=== PATIENT | male | born 1955 | race Caucasian/White ===

== ENCOUNTER 2016-11-30 10:47 | Outpatient (CLI) | payer OTHER | END 2016-11-30 10:48 | disposition home or self-care (01) | DX: I10 Essential (primary) hypertension (principal); Z00.00 Encounter for general adult medical examination without abnormal findings; Z12.5 Encounter for screening for malignant neoplasm of prostate; E29.1 Testicular hypofunction; E74.39 Other disorders of intestinal carbohydrate absorption ==

== ENCOUNTER 2017-06-24 08:18 | Outpatient (CLI) | payer OTHER ==
--- NOTE | 2017-06-24 13:28 | MRI Report ---
EXAM: RIGHT KNEE MRI WITHOUT CONTRAST EXAM DATE: 06/24/2017 09:17 AM. CLINICAL HISTORY: Lateral right knee pain. Difficulty with bending of the right knee. Pain with exten ding the knee. COMPARISON: Right knee MRI from 12/20/2014. TECHNIQUE: Multiplanar, multisequence T1-weighted and fluid-sensitive sequences of the knee without c ontrast. Other: None. FINDINGS: Bones and articular cartilage: Small focal partial-thickness articular cartilage fissure at the centr al weightbearing aspect of the lateral femoral condyle. There is a focal, approximately 1 x 0.4 cm pa rtial-thickness articular cartilage defect at the posterior superior nonweightbearing aspect of the l ateral femoral condyle which is slightly larger since the previous study. 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 There are partial-th ickness articular cartilage fissures at the medial and lateral patellar facets which are unchanged. N o patellar subluxation. Medial Meniscus: Degenerative intrasubstance signal within the posterior horn. No tear. No change. Lateral Meniscus: The lateral meniscus is intact. Cruciate Ligaments: The anterior and posterior cruciate ligaments are intact. There is a new, approxi mately 2.6 x 2.5 x 1.3 cm mildly lobular and mildly septated ganglion between the cruciate ligaments. Collateral Ligaments: The medial collateral and lateral collateral ligamentous structures are intact. Tendons: The quadriceps, patellar, semimembranosus, and popliteus tendons are unremarkable. Musculature: No edema or fatty atrophy. Other: No effusion. No popliteal cyst. No loose bodies. The medial and lateral retinacula are intact. The subcutaneous tissues and fat pads are unremarkable. IMPRESSION: 1. Focal partial thickness articular cartilage fissure at the central weightbearing aspect of the lat eral femoral condyle and focal partial-thickness articular cartilage defect at the posterior superior nonweightbearing aspect of the lateral femoral condyle. 2. Stable partial-thickness articular cartilage fissures at the patella. 3. Degenerative signal within the posterior horn medial meniscus. No tear. 4. A new ganglion between the cruciate ligaments. No cruciate ligament injury. [facility] MUSCULOSKELETAL RADIOLOGY SECTION Referring Provider Line: [phone] SITE ID: [id number]
== END 2017-06-24 08:19 | disposition home or self-care (01) ==
LOC: DI 08:18
PROVIDERS: ATTEND Family Medicine
DX: M22.41 Chondromalacia patellae, right knee (principal); M67.461 Ganglion, right knee

== ENCOUNTER 2018-05-06 13:45 | Outpatient (CLI) | payer OTHER ==
[2018-05-06 19:23] LABS: ALBUMIN 4.5 g/dL (3.2-5.5); ALBUMIN/GLOBULIN RATIO 1.6 (1.0-2.2); BILIRUBIN,TOTAL 0.8 mg/dL (0.2-1.0); CALCIUM 9.3 mg/dL (8.5-10.3); TOTAL PROTEIN 7.3 g/dL (6.7-8.2)
[2018-05-06 19:30] LABS: BASOPHILS % (AUTO) 0.6 %; EOSINOPHILS # (AUTO) 0.2 10^3/uL (0.0-0.7); EOSINOPHILS % (AUTO) 2.7 %; HGB - HEMOGLOBIN 14.8 g/dL (14.0-18.0); LYMPHOCYTES % (AUTO) 17.9 %; MEAN CORPUSCULAR VOLUME 85.2 fL (80.0-94.0); MEAN PLATELET VOLUME 8.9 fL (7.4-11.4); MONOCYTES # (AUTO) 0.3 10^3/uL (0.0-1.0); MONOCYTES % (AUTO) 4.6 %; NEUTROPHILS # (AUTO) 4.3 10^3/uL (1.5-6.6); NEUTROPHILS % (AUTO) 74.2 %; PLT - PLATELET COUNT 204 10^3/uL (130-450); RED BLOOD COUNT 5.11 10^6/uL (4.70-6.10); RED CELL DISTRIBUTION WIDTH 13.3 % (12.0-15.0); WHITE BLOOD COUNT 5.8 x10^3/uL (4.8-10.8)
[2018-05-06 19:38] LABS: THYROID STIMULATING HORMONE 3.48 uIU/mL (0.34-5.60)
[2018-05-06 19:40] LABS: FREE T4 (FREE THYROXINE) 0.87 ng/dL (0.58-1.64)
== END 2018-05-06 13:46 | disposition home or self-care (01) ==
LOC: LAB.WCP 13:45
PROVIDERS: ATTEND Internal Medicine Cardiovascular Disease
DX: R07.89 Other chest pain (principal); I47.1 Supraventricular tachycardia
CPT/HCPCS: 36415; 80053; 84439; 84443; 85025